=== PATIENT | male | born 1970 | race Two or more races ===

== ENCOUNTER 2025-09-26 22:26 | Inpatient (IN) | payer MEDICAID, OTHER ==
[~2025-09-26] VITALS: Ht 200.7 cm; Wt 66.2 kg
[2025-09-26 22:27] VITALS: O2SAT 99
[2025-09-26] MEDS: ACETAMINOPHEN 325MG TABLET PO ONE (22:45)
[2025-09-26] MEDS: ALBUTEROL (0.083%) 2.5MG/3ML NEB HHN ONE (23:00)
[2025-09-26] MEDS: IPRATROPIUM BROMIDE (0.02%) 0.5MG/2.5ML NEB HHN ONE (23:00)
[2025-09-26] MEDS: SODIUM CHLORIDE 0.9% (SEPSIS BOLUS) IV ONE (23:08)
[2025-09-26 23:10] LABS: HEMATOCRIT. 44.5 % (42.0-52.0); HEMOGLOBIN. 14.5 g/dL (14.0-18.0); MEAN PLATELET VOLUME 9.6 fl (7.4-10.4); PLATELET 182 x1000/uL (130-400); RED BLOOD CELL COUNT 4.83 mill/uL (4.7-6.1); RED CELL DISTRIBUTION WIDTH 14.3 % (11.6-14.6)
[2025-09-26 23:19] LABS: BG BASE EXCESS -2.0 mmol/L (-2.0-3.0); BG CARBOXYHEMOGLOBIN 2.3 % (0.5-1.5); BG DEOXYHEMOGLOBIN 4.7 % (0.0-5.0); BG FRACTION INSPIRED OXYGEN 21; BG HCO3 ACT 20.7 mmol/L (21.0-28.0); BG METHEMOGLOBIN 0.0 % (0.5-1.5); BG OXYGEN SATURATION 95.2 % (94.0-98.0); BG OXYHEMOGLOBIN 93.0 % (94.0-98.0); BG PCO2 30.3 mmHg (35.0-48.0); BG PH 7.453 (7.350-7.450); BG PO2 69.3 mmHg (83.0-108.0); BG SAMPLE SITE RIGHT BRACHIAL; BG TOTAL HEMOGLOBIN 14.8 g/dL (13.5-17.5); BG VENT MODE ROOM AIR
[2025-09-26] MEDS: DEXAMETHASONE 10 MG/ML VIAL IV ONE (23:24)
[2025-09-26 23:28] LABS: CREATININE 0.9 mg/dL (0.6-1.3); INR 1.0; UREA NITROGEN BLOOD 7 mg/dL (9-23)
[2025-09-26] MEDS: ACETAMINOPHEN 1000MG/100ML 100 ML IV ONE (23:28)
[2025-09-26 23:30] LABS: ASPARTATE AMINOTRANSFERASE 39 IU/L (<34); BAND% 5.0 % (1.0-6.0); BILIRUBIN DIRECT 0.2 mg/dL (<=3.0); BILIRUBIN TOTAL 0.6 mg/dL (0.1-1.0); LYMPHOCYTES % MANUAL 11.0 % (20.0-50.0); MONOCYTES % MANUAL 3.0 % (2.0-8.0); NEUTROPHILS % MANUAL 81.0 % (45.0-75.0); PLATELET ESTIMATE NORMAL
[2025-09-26 23:31] LABS: PROTEIN TOTAL 7.4 g/dL (6.0-8.3)
[2025-09-27] MEDS: PIPERACILLIN/TAZO 3.375G/50ML 50 ML IV ONE (00:03)
[2025-09-27] MEDS: IOHEXOL-300 100 ML BOTTLE ONE (00:04)
[2025-09-27 00:22] LABS: CLARITY URINE CLEAR (CLEAR); COLOR URINE YELLOW (YELLOW); GLUCOSE URINE NEGATIVE (NEGATIVE); KETONES URINE NEGATIVE (NEGATIVE); LEUKOCYTE ESTERASE URINE NEGATIVE (NEGATIVE); NITRITE URINE NEGATIVE (NEGATIVE); OCCULT BLOOD URINE TRACE (NEGATIVE); PH URINE 7.5 (4.5-8.0); PROTEIN URINE NEGATIVE (NEGATIVE); SPECIFIC GRAVITY URINE 1.009 (1.005-1.030); UROBILINOGEN URINE 0.2 E.U./dL (0.2-1.0)
[2025-09-27] MEDS: KETOROLAC 15MG/ML VIAL IV NR (00:39)
[2025-09-27] MEDS: VANCOMYCIN 1G PREMIX 200 ML IV ONE (00:39)
[2025-09-27 01:14] LABS: BACTERIA URINE NONE SEEN; RBC URINE 0-2 /hpf (0-2); SQUAMOUS EPITHELIAL CELL URINE NONE SEEN /lpf (RARE/1+); WBC URINE 0-2 /hpf (0-2)
[2025-09-27 02:31] VITALS: BP 118/71; PULSE 82; RESP 18; TEMP 36.6; TEMP 36.6404; O2SAT 97
[2025-09-27 04:00] VITALS: BP 109/69; PULSE 82; RESP 17; TEMP 36.6; O2SAT 96
[2025-09-27] MEDS ORDERED: IOHEXOL-300 100 ML BOTTLE ONE (05:27)
[2025-09-27] MEDS ORDERED: ONDANSETRON HCL 4MG TABLET PO PRN (06:00)
[2025-09-27] MEDS ORDERED: ACETAMINOPHEN 325MG TABLET PO PRN (06:00)
[2025-09-27] MEDS: THROAT LOZENGES-BENZOCAINE/MENTH/CETYLPYRD CL LOZENGES MM PRN (06:50)
[2025-09-27 06:52] LABS: INFLUENZA TYPE A Presumptive Negative (Pres. Neg.); INFLUENZA TYPE B Presumptive Negative (Pres. Neg.)
[2025-09-27 06:53] LABS: RESPIRATORY SYNCYTIAL VIRUS Not Detected (Not Detectd)
[2025-09-27 08:00] VITALS: BP 114/71; PULSE 87; RESP 19; TEMP 36.3; O2SAT 98
[2025-09-27 11:04] LABS: *AMPHETAMINES SCREEN URINE NEGATIVE (NEGATIVE); *BENZODIAZEPINES SCREEN URINE NEGATIVE (NEGATIVE)
[2025-09-27 11:05] LABS: *BARBITURATES SCREEN URINE NEGATIVE (NEGATIVE); *COCAINE SCREEN URINE NEGATIVE (NEGATIVE); CANNABINOID URINE SCREEN NEGATIVE (NEGATIVE); ECSTASY MDMA SCREEN URINE NEGATIVE (NEGATIVE); METHADONE URINE SCREEN NEGATIVE (NEGATIVE); OPIATES URINE SCREEN NEGATIVE (NEGATIVE); PHENCYCLIDINE URINE SCREEN NEGATIVE (NEGATIVE)
[2025-09-27] MEDS ORDERED: DOCUSATE SODIUM 100MG CAPSULE PO PRN (11:30)
[2025-09-27] MEDS ORDERED: IPRATROPIUM/ALBUTEROL 0.5-3(2.5)MG/3ML NEB HHN PRN (11:30)
[2025-09-27] MEDS ORDERED: CLONIDINE 0.1MG TABLET PO PRN (11:30)
[2025-09-27 12:00] VITALS: BP 103/67; PULSE 80; RESP 19; TEMP 36.5; O2SAT 100
[2025-09-27] MEDS: SODIUM CHLORIDE 0.9% 1,000 ML IV SCH (13:29)
[2025-09-27] MEDS: PIPERACILLIN/TAZO 3.375G/50ML 50 ML IV SCH (15:10)
[2025-09-27 15:50] VITALS: BP 102/57; PULSE 78; RESP 19; TEMP 97.9
[2025-09-27] MEDS ORDERED: VANCOMYCIN 1GM PMX (XELLIA) 200 ML IV SCH (18:00)
== END 2025-09-27 16:30 | disposition short-term general hospital (02) | DRG 720 ==
LOC: ER 22:26 → 5WST 09-27 00:24 → EDBEDREQDT 09-27 00:25 → EDBEDREQ 09-27 00:25 → EDBEDREQTM 09-27 00:25 → ENRESERV 09-27 02:04
PROVIDERS: ADMIT Internal Medicine; ATTEND Internal Medicine
DX: A41.9 Sepsis, unspecified organism (principal); J36 Peritonsillar abscess; R59.0 Localized enlarged lymph nodes; Z20.822 Contact with and (suspected) exposure to COVID-19; Z79.899 Other long term (current) drug therapy
CPT/HCPCS: 36415; 36600; 70491; 71045; 80048; 80076; 80305; 81003; 82375; 82805; 82962; 83605; 84145; 85025; 87070; 87420; 87426; 87430; 87804; 93005; 96365; 96375; 99291; J1100; J1885; J2543; J3373; J7030; Q9967; J0131